=== PATIENT | male | born 1955 | race Caucasian/White ===

== ENCOUNTER 2020-02-09 14:22 | Emergency (ER) | payer OTHER, SELFPAY ==
--- NOTE | 2020-02-09 15:38 | RAD ---
EXAM: LEFT RIBS TWO VIEWS CHEST ONE VIEW: 02/09/20 HISTORY: Injury from a fall two days ago. FINDINGS: Heart size is normal. The lungs are clear and fully inflated. No pneumothorax or pleural effusion. No convincing evidence for acute rib fracture. IMPRESSION: 1. No convincing evidence for acute rib fracture. 2. No pneumothorax or pleural effusion. 3. Atherosclerosis of the aorta. POS: RRE
== END 2020-02-09 15:32 | disposition home or self-care (01) ==
LOC: MADERS 14:22
DX: S29.011A Strain of muscle and tendon of front wall of thorax, initial encounter (principal); F17.210 Nicotine dependence, cigarettes, uncomplicated; W01.0XXA Fall on same level from slipping, tripping and stumbling without subsequent striking against object, initial encounter

== ENCOUNTER 2022-11-16 03:37 | Emergency (ER) | payer MEDICARE, SELFPAY ==
[2022-11-16] MEDS ORDERED: Aspirin Chewable 81 MG TAB ONE (04:01)
[2022-11-16 04:14] LABS: #Basophils 0.1 thou/uL (0.0-0.2); #Eosinphils 0.1 thou/uL (0.0-0.7); #Lymphocytes 1.6 thou/uL (1.20-3.40); #Monocytes 1.2 thou/uL (0.11-0.59); #Neutrophils 6.3 thou/uL (1.40-6.50); %Basophils 1.1 % (0.0-1.0); %Eosinophils 1.5 % (0.0-10.0); %Neutrophils 67.5 % (42.0-75.0); Hemoglobin 12.6 g/dL (14.0-18.0); Mean Corpuscular HGB CONC 36.6 g/dL (32.0-36.0); Mean Corpuscular Hemoglobin 33.7 pg (27.0-31.0); Mean Corpuscular Volume 92.1 fl (78.0-98.0); Mean Platelet Volume 7.3 fL (7.4-10.4); Platelet Count 312 10x3/uL (130-400); RBC Distribution Width 10.8 % (11.5-14.5); Red Blood Cell (RBC) Count 3.72 mill/uL (4.70-6.10); White Blood Cell (WBC) Count 9.4 10x3/uL (4.8-10.8)
[2022-11-16 04:18] LABS: ALT (SGPT) 7 U/L (8-55); AST (SGOT) 16 U/L (5-34); Albumin 3.8 g/dL (3.4-4.8); Alkaline Phosphatase 52 U/L (40-110); Anion Gap 16 mmol/L (10-20); BUN (Urea Nitrogen) 5 mg/dL (8.4-25.7); Bilirubin, Total 0.6 mg/dL (0.2-1.2); Calc. Creatinine Clearance 0 mL/min (70-130); Calcium 8.9 mg/dL (7.8-10.44); Carbon Dioxide 23 mmol/L (23-31); Chloride 91 mmol/L (98-107); Estimated GFR 100; Globulin 2.5 g/dL (2.4-3.5); Glucose 104 mg/dL (80-115); Potassium 4.2 mmol/L (3.5-5.1); Protein, Total 6.3 g/dL (5.8-8.1); Sodium 126 mmol/L (136-145)
[2022-11-16] MEDS ORDERED: Ipratropium/Albuterol 3 ML NEB ONE (04:18)
[2022-11-16] MEDS ORDERED: methylPREDNISolone Sod Succ/PF 125 MG/2 ML VIAL ONE (04:22)
[2022-11-16] MEDS ORDERED: Sodium Chloride 0.9% 1,000 ML ONE (04:23)
[2022-11-16 05:29] LABS: SARS-CoV-2 NAA Rapid Test Not Detected (NotDetected)
[2022-11-16 14:30] LABS: Potassium, Urine 29.2 mmol/L
== END 2022-11-16 09:20 | disposition short-term general hospital (02) ==
LOC: MADERS 03:37
DX: R07.9 Chest pain, unspecified (principal); J96.00 Acute respiratory failure, unspecified whether with hypoxia or hypercapnia; E87.1 Hypo-osmolality and hyponatremia; F17.200 Nicotine dependence, unspecified, uncomplicated; I10 Essential (primary) hypertension; F17.210 Nicotine dependence, cigarettes, uncomplicated; Z20.822 Contact with and (suspected) exposure to COVID-19
CPT/HCPCS: 71045; 71275; 80053; 82436; 83735; 83880; 83935; 84133; 84300; 84484; 85025; 85379; 93005; 96365; 96375; 99285; U0002; J1956; J2930; J7050; J7620